=== PATIENT | female | born 1980 | race African-American/Black ===

== ENCOUNTER 2016-12-07 20:31 | Emergency (ER) | payer MEDICAID ==
[~2016-12-07] VITALS: Ht 157.5 cm; Wt 67.0 kg
[2016-12-07 20:33] VITALS: BP 149/77; PULSE 85; RESP 15; TEMP 98.1; O2SAT 98
--- NOTE | 2016-12-07 21:39 | PD ---
HPI Chief Complaint: Wound/Suture/Staple Re-Check Time Seen by Provider: 21:25 Travel History International Travel<30 days: No Contact w/Intl Traveler<30days: No Traveled to known affect area: No History of Present Illness HPI 36-year-old female presents for staple removal. She was seen here in November 17 after a fall in which she sustained a left parietal scalp laceration. This was repaired with 3 tootie. She voices no complaints regarding the injury. PFSH Past Medical History Hx Anticoagulant Therapy: No Arthritis: Yes Asthma: Yes Cardiovascular Problems: No Chemotherapy: No Cerebrovascular Accident: No Diabetes: No Diminished Hearing: No Respiratory: Yes (ASTHMA) Integumentary: Yes (ECCHYMOTIC LT EYE) ?: Not : 3 Para: 1 Miscarriage: 1 : 1 Past Surgical History Section: Yes Hysterectomy: No Other Surgery: Yes (BREAST REDUCTION) Social History Alcohol Use: No Tobacco Use: Yes (3-5 cig daily ) Substance Use: No Allergies-Medications (Allergen,Severity, Reaction): Coded Allergies: No Known Allergies (Verified , 12/07/16) Reported Meds & Prescriptions Reported Meds & Active Scripts Active No Active Prescriptions or Reported Medications Review of Systems Skin: Positive Other ([place], need to be removed) Physical Exam Narrative GENERAL: Well developed well-nourished female in no acute distress SKIN: Warm and dry. Healed left parietal scalp laceration, [address], no dehiscence or drainage or erythema HEAD: Skin as noted above Normocephalic. NEUROLOGICAL: Awake and alert. No obvious cranial nerve deficits. Motor grossly within normal limits. Normal speech. Data Data Last Documented VS Vital Signs Date Time Temp Pulse Resp B/P Pulse Ox O2 Delivery O2 Flow Rate FiO2 12/07/16 20:33 98.1 85 15 149/77 98 Room Air MDM Medical Decision Making Medical Screen Exam Complete: Yes Emergency Medical Condition: Yes Medical Record Reviewed: Yes Differential Diagnosis Staple removal, wound dehiscence, infected wound Narrative Course The tootie were removed without incident. Diagnosis Primary Impression: Removal of staple Med/Other Pt SpecificInfo: No Change to Meds Scripts No Active Prescriptions or Reported Meds Disposition: 01 DISCHARGE HOME Condition: Stable Felipe Botello Dec 07, 2016 21:39
== END 2016-12-07 22:02 | disposition home or self-care (01) ==
LOC: NEPB 20:31
DX: Z48.02 Encounter for removal of sutures (principal)
CPT/HCPCS: 99281

== ENCOUNTER 2017-03-01 07:57 | Emergency (ER) | payer SELFPAY ==
[~2017-03-01] VITALS: Ht 154.9 cm; Wt 64.0 kg
[2017-03-01 08:00] VITALS: BP 107/70; PULSE 67; RESP 19; TEMP 97.4; O2SAT 100
--- NOTE | 2017-03-01 08:13 | PD ---
HPI Chief Complaint: Wound/Suture/Staple Re-Check Time Seen by Provider: 08:12 Travel History International Travel<30 days: No Contact w/Intl Traveler<30days: No Traveled to known affect area: No History of Present Illness HPI 36-year-old female presents to the emergency department requesting abscess packing removal that has been there for 2 days. She thought she had come here but then recalls that she actually had the abscess incised, drained and packed at [facility]. She denies fever, chills, nausea, vomiting. Reports improvement in the area. Has been taking antibiotic as prescribed. She doesn' t remember the name of the antibiotic that she was prescribed. No other medical complaints. No known allergies. No other modifying factors or associated signs and symptoms PFSH Past Medical History Hx Anticoagulant Therapy: No Arthritis: Yes Asthma: Yes Cardiovascular Problems: No Chemotherapy: No Cerebrovascular Accident: No Diabetes: No Diminished Hearing: No Respiratory: Yes (ASTHMA) Integumentary: Yes (ECCHYMOTIC LT EYE) ?: Not LMP: 02/13/17 : 3 Para: 1 Miscarriage: 1 : 1 Past Surgical History Section: Yes Hysterectomy: No Other Surgery: Yes (BREAST REDUCTION) Social History Alcohol Use: No Tobacco Use: Yes (3-5 cig daily ) Substance Use: No Allergies-Medications (Allergen,Severity, Reaction): Coded Allergies: No Known Allergies (Verified , 12/07/16) Reported Meds & Prescriptions Reported Meds & Active Scripts Active No Active Prescriptions or Reported Medications Review of Systems Except as stated in HPI: all other systems reviewed are Neg Physical Exam Narrative GENERAL: Well-nourished, well-developed female patient, in no acute distress; afebrile, nontoxic-appearing SKIN: There is an abscess to the right labia majora with iodoform packing present. Labia majora is mildly edematous and without erythema. HEAD: Atraumatic. Normocephalic. EYES: Pupils equal and round. No scleral icterus. No injection or drainage. ENT: Mucosa pink and moist. Airway patent. NECK: Trachea midline. CARDIOVASCULAR: Regular rate. RESPIRATORY: No accessory muscle use. GASTROINTESTINAL: Flat. MUSCULOSKELETAL: No obvious deformities. No clubbing. No cyanosis. No edema. NEUROLOGICAL: Awake and alert. Oriented 3. No obvious cranial nerve deficits. Motor grossly within normal limits. Normal speech. PSYCHIATRIC: Appropriate mood and affect; insight and judgment normal. Data Data Last Documented VS Vital Signs Date Time Temp Pulse Resp B/P Pulse Ox O2 Delivery O2 Flow Rate FiO2 03/01/17 08:00 97.4 67 19 107/70 100 MDM Medical Decision Making Medical Screen Exam Complete: Yes Emergency Medical Condition: Yes Medical Record Reviewed: Yes Differential Diagnosis Encounter for abscess packing removal, wound recheck, medical clearance Narrative Course 36-year-old female presents for abscess packing removal to her right labia majora. The abscess was incised, drained, and packed at [facility]. She reports improvement in symptoms. Is taking antibiotics as prescribed but cannot recall the name of them. Packing removed and patient tolerated well. Instructed patient to continue antibiotics until they are gone. Instructed patient to follow up with gynecology. Patient verbalizes understanding and agreement with treatment plan. Patient is medically cleared and stable for discharge. Discussed reasons to return to the emergency department. Instructed patient to follow up with primary care provider. Patient agrees with treatment plan. The patients vital signs are stable and the patient is stable for outpatient follow-up and treatment. Patient discharged home, stable and in no acute distress. Diagnosis Primary Impression: Encounter for abscess packing removal Referrals: [facility] Primary Care Physician Patient Instructions: Abscess (ED), Abscess Follow-up (ED), General Instructions Departure Forms: Tests/Procedures, Work Release Enter return to work date: Mar 02, 2017 Additional Instructions: Continue antibiotics as prescribed and complete full course Warm compresses to the affected area Keep area clean and dry Ibuprofen or Tylenol as directed and as needed for pain and inflammation Follow-up with primary care provider Follow-up with house registry rn Return to emergency department immediately with worsening of symptoms Med/Other Pt SpecificInfo: No Change to Meds, No Meds Exist/No RX given Scripts No Active Prescriptions or Reported Meds Disposition: DISCHARGE HOME Condition: Stable Dalia Vance Mar 01, 2017 08:13
== END 2017-03-01 08:31 | disposition home or self-care (01) ==
LOC: NEPK 07:57
DX: N76.4 Abscess of vulva (principal); Z48.01 Encounter for change or removal of surgical wound dressing
CPT/HCPCS: 99282

== ENCOUNTER 2017-06-18 16:49 | Emergency (ER) | payer MEDICAID ==
[~2017-06-18] VITALS: Ht 157.5 cm; Wt 65.0 kg
[2017-06-18 16:53] VITALS: BP 188/105; PULSE 71; RESP 16; TEMP 98.7; O2SAT 99
[2017-06-18] MEDS ORDERED: LIDOCAINE HCL 1% 50 ML VIAL INFIL ONE (18:00)
--- NOTE | 2017-06-18 18:05 | PD ---
HPI Chief Complaint: Laceration/Skin Injury Time Seen by Provider: 17:55 Travel History International Travel<30 days: No Contact w/Intl Traveler<30days: No Traveled to known affect area: No History of Present Illness HPI 36-year-old female presents to the emergency department for evaluation of laceration to her left plantar foot that occurred just prior to arrival. Patient states she stopped and cut her foot on a piece of glass. She states it was a large piece of glass. Patient states her tetanus immunization was 2 years ago. She reports no chronic medical problems and takes no medications. She has no other complaints at this time. PFSH Past Medical History Hx Anticoagulant Therapy: No Arthritis: Yes Asthma: Yes Cardiovascular Problems: No Chemotherapy: No Cerebrovascular Accident: No Diabetes: No Diminished Hearing: No Respiratory: Yes (ASTHMA) Integumentary: Yes (ECCHYMOTIC LT EYE) Tetanus Vaccination: < 5 Years Influenza Vaccination: No ?: Not LMP: 3 days ago : 3 Para: 1 Miscarriage: 1 : 1 Past Surgical History Section: Yes Hysterectomy: No Other Surgery: Yes (BREAST REDUCTION) Social History Alcohol Use: No Tobacco Use: Yes (3-5 cig daily ) Substance Use: No Allergies-Medications (Allergen,Severity, Reaction): Coded Allergies: No Known Allergies (Verified , 06/18/17) Reported Meds & Prescriptions Reported Meds & Active Scripts Active No Active Prescriptions or Reported Medications Review of Systems Except as stated in HPI: all other systems reviewed are Neg Physical Exam Narrative GENERAL: Well-nourished, well-developed female patient, ambulatory. Afebrile. SKIN: Focused skin assessment warm/dry. Patient is a 1 cm laceration of the left plantar foot. I have able to visualize the base of the wound and there is no foreign body. HEAD: Normocephalic. Atraumatic. EYES: No scleral icterus. No injection or drainage. NECK: Supple, trachea midline. No JVD or lymphadenopathy. CARDIOVASCULAR: Regular rate and rhythm without murmurs, gallops, or rubs. RESPIRATORY: Breath sounds equal bilaterally. No accessory muscle use. Lungs sounds are clear to auscultation. GASTROINTESTINAL: Abdomen soft, non-tender, nondistended. MUSCULOSKELETAL: No cyanosis, or edema. BACK: Nontender without obvious deformity. No CVA tenderness. Data Data Last Documented VS Vital Signs Date Time Temp Pulse Resp B/P Pulse Ox O2 Delivery O2 Flow Rate FiO2 06/18/17 16:53 98.7 71 16 188/105 99 Orders Lidocaine 1% Inj (50 Ml) (Xylocaine 1% I (06/18/17 18:00) [facility] Medical Decision Making Medical Screen Exam Complete: Yes Emergency Medical Condition: Yes Medical Record Reviewed: Yes Differential Diagnosis laceration vs. abrasion vs. contusion Narrative Course 36-year-old female presents to the emergency department for evaluation of a laceration to her left plantar foot. The laceration is minor 1 cm laceration of left plantar foot. Patient gives verbal consent for laceration repair. Laceration is repaired with one stitch. She is instructed on proper wound care instructions. Patient verbalizes agreement and understanding. Procedures Procedure Narrative LACERATION LOCATION: left plantar foot LENGTH: 1 cm NUMBER OF STITCHES/HARITHA: 1 simple, interrupted suture REPAIR: The area of the laceration was prepped with Betadine and sterilely draped. The laceration was infiltrated with 1% lidocaine. The wound was copiously irrigated and explored without evidence of foreign body, tendon injury or neurovascular injury. The wound was closed using 4-0 Prolene. This was a single layer repair. A sterile dressing was applied. The patient was advised to keep the dressing clean and dry. Patient tolerated the procedure well. Diagnosis Primary Impression: Laceration of foot, left Qualified Code: S91.312A - Laceration of foot, left, initial encounter Referrals: Primary Care Physician call for appointment Patient Instructions: General Instructions, Laceration (ED) Additional Instructions: Clean twice daily with antibacterial soap and water and apply antibiotic ointment. Keep clean and dry. No swimming or hot tubs. Suture removal in 10 days. You may follow up with your primary care physician or return to the emergency department for this. Med/Other Pt SpecificInfo: No Change to Meds Scripts No Active Prescriptions or Reported Meds Disposition: 01 DISCHARGE HOME Condition: Stable Irina Chapa DORENE Jun 18, 2017 18:05
== END 2017-06-18 18:41 | disposition home or self-care (01) ==
LOC: NEPD 16:49
DX: S91.312A Laceration without foreign body, left foot, initial encounter (principal); W25.XXXA Contact with sharp glass, initial encounter
CPT/HCPCS: 12001

== ENCOUNTER 2018-04-01 21:55 | Emergency (ER) | payer MEDICAID ==
[2018-04-01 22:02] VITALS: BP 108/67; PULSE 82; RESP 18; TEMP 98; O2SAT 100
--- NOTE | 2018-04-01 22:20 | PD ---
HPI Chief Complaint: Injury Time Seen by Provider: 22:06 Travel History International Travel<30 days: No Contact w/Intl Traveler<30days: No Traveled to known affect area: No History of Present Illness HPI Patient is a 37 year female presenting to emerge from for evaluation of left foot pain. Patient states a large bookshelf fell onto her left foot across the base of her toes yesterday evening. Since that time she has had pain which is worse with ambulation. She reports her pain is a 7 out of 10, she states is aching and throbbing. She also reports that something on the bookshelf hit her in the head. She denies any current headache, dizziness, nausea, vomiting. Patient is on a blood thinners. She has not taken any medications to alleviate her current symptoms. Patient is able to bear weight. Symptom onset was sudden , symptoms are moderate in nature. There are no alleviating factors. PFSH Past Medical History Hx Anticoagulant Therapy: No Arthritis: Yes Asthma: Yes Respiratory: Yes (ASTHMA) Integumentary: Yes (ECCHYMOTIC LT EYE) Immunizations Current: Yes ?: Not : 3 Para: 1 Miscarriage: 1 : 1 Past Surgical History Section: Yes Hysterectomy: No Other Surgery: Yes (BREAST REDUCTION) Social History Alcohol Use: Yes Tobacco Use: No Substance Use: No Allergies-Medications (Allergen,Severity, Reaction): Coded Allergies: No Known Allergies (Verified Adverse Reaction, Unknown, 04/01/18) Reported Meds & Prescriptions Reported Meds & Active Scripts Active Ibuprofen 800 Mg Tab 800 Mg PO Q6HR PRN Review of Systems Except as stated in HPI: all other systems reviewed are Neg Musculoskeletal: Positive: Myalgias, Arthralgias, Pain Skin: Positive Change in Pigmentation Physical Exam Narrative GENERAL: Well-developed, well-nourished, alert female. Presenting in no acute distress. SKIN: Warm and dry. Mild erythema and edema to first MTP. HEAD: Normocephalic. EYES: No scleral icterus. No injection or drainage. NECK: Supple, trachea midline. No JVD or lymphadenopathy. CARDIOVASCULAR: Regular rate and rhythm without murmurs, gallops, or rubs. RESPIRATORY: Breath sounds equal bilaterally. No accessory muscle use. GASTROINTESTINAL: Abdomen soft, non-tender, nondistended. MUSCULOSKELETAL: No cyanosis, full range of motion with flexion extension of toes and ankle on the left side. 2+ dorsalis pedal pulse. BACK: Nontender without obvious deformity. No CVA tenderness. Data Data Last Documented VS Vital Signs Date Time Temp Pulse Resp B/P (MAP) Pulse Ox O2 Delivery O2 Flow Rate FiO2 04/01/18 22:02 98.0 82 18 108/67 (81) 100 Orders Orders Foot, Complete ([id number]) (04/01/18 ) Ed Discharge Order (04/01/18 22:48) MDM Medical Decision Making Medical Screen Exam Complete: Yes Emergency Medical Condition: Yes Interpretation(s) Vital Signs Date Time Temp Pulse Resp B/P (MAP) Pulse Ox O2 Delivery O2 Flow Rate FiO2 04/01/18 22:02 98.0 82 18 108/67 (81) 100 Differential Diagnosis Contusion versus fracture versus sprain versus strain versus other Narrative Course Patient is well-appearing 37-year-old female presenting for evaluation of left foot pain after a bookshelf fell onto her foot last night. Patient's vital signs are stable. X-ray ordered and pending. X-ray of the left foot is unremarkable. Patient is encouraged to rest, ice, elevate extremity. Take ibuprofen as needed and as directed for pain. Patient was reassured that there were no acute findings and symptoms should resolve on their own with conservative management. She is encouraged to follow-up with her primary doctor return to emergency department for any new or worsening symptoms. Patient verbalized understanding of instructions. Patient stable for discharge. Diagnosis Primary Impression: Contusion of foot Qualified Codes: S90.32XA - Contusion of left foot, initial encounter Referrals: [facility] 1 week Primary Care Physician Patient Instructions: Foot Contusion (ED), General Instructions Additional Instructions: Rest, ice, elevate extremity Take ibuprofen as needed and as directed for pain Follow-up with your primary doctor Return to emergency department for any new or worsening symptoms Med/Other Pt SpecificInfo: Prescription(s) given Scripts Ibuprofen (Ibuprofen) 800 Mg Tab 800 MG PO Q6HR Y for PAIN, #40 TAB 0 Refills Prov: Keyana Rodriguez 04/01/18 Disposition: 01 DISCHARGE HOME Condition: Stable Keyana Rodriguez April 01, 2018 22:20
--- NOTE | 2018-04-01 22:34 | RADRPT ---
EXAM DATE/TIME: 04/01/2018 22:17 [facility] COMPARISON: No previous studies available for comparison. INDICATIONS : Left foot pain from crushing trauma. MEDICAL HISTORY : None. SURGICAL HISTORY : None. ENCOUNTER: Initial ACUITY: 2 days PAIN SCORE: 8/10 LOCATION: Left foot FINDINGS: Three view examination of the left foot demonstrates no soft tissue swelling, dislocation, or fractur e. The tarsal bones appear intact. The interphalangeal and metatarsophalangeal joints are intact. The calcaneus is intact. Bony mineralization is normal. CONCLUSION: Unremarkable examination of the left foot. Eben Rudolph MD on April 01, 2018 at 22:33 Board Certified Radiologist. This report was verified electronically.
[2018-04-01] MEDS ORDERED: IBUP1TAB7 PO (22:48)
== END 2018-04-01 23:28 | disposition home or self-care (01) ==
LOC: NEPD 21:55
DX: S90.32XA Contusion of left foot, initial encounter (principal); W20.8XXA Other cause of strike by thrown, projected or falling object, initial encounter
CPT/HCPCS: 73630; 99283

== ENCOUNTER 2018-05-15 19:23 | Emergency (ER) | payer MEDICAID ==
[~2018-05-15] VITALS: Ht 157.5 cm; Wt 63.6 kg
[~2018-05-15 19:23] MED LIST: IBUP1TAB7 PO
[2018-05-15 19:26] VITALS: BP 135/82; PULSE 72; RESP 15; TEMP 98.2; O2SAT 99
--- NOTE | 2018-05-15 19:41 | PD ---
HPI Chief Complaint: head injury Time Seen by Provider: 19:32 Travel History International Travel<30 days: No Contact w/Intl Traveler<30days: No Traveled to known affect area: No History of Present Illness HPI 37-year-old female presents to the emergency department from home by EMS transport after sustaining head injury with loss of consciousness. According to the paramedics and the patient patient was in her room sitting on a bed looking through her cell phone with a ceiling fan overhead. According the patient ceiling fan has been wobbling for a while and was making is normal wobbling noises and then she awakened on the floor. According to software reliability engineer report family member at home heard a large crashing sound went into the room found the patient on the floor with the ceiling fan on the floor next to her with some ceiling debris next to the patient's head. Patient was reportedly unconscious but was easily awakened by the sister. There was reportedly no seizure activity identified. No obvious soft tissue abnormality to the forehead or scalp and no obvious laceration or abrasion. Patient awakened without confusion other than unaware of what had happened but new apparently who she was where she was and recognized her family member. EMS arrived and patient was awake upon their arrival. Estimated time of loss of consciousness less than 1 minute. There was no reported seizure activity no tongue trauma and no incontinence. Patient here complains of 8/10 intensity headache light sensitivity and 5/10 intensity neck pain with bilateral shoulder soreness. Patient denies any back pain chest pain rib pain shortness of breath abdominal pain flank pain pelvic pain arm hand leg or foot pain. Patient also denies any upper extremity or lower extremity numbness tingling or weakness. Patient was placed in cervical collar and transported to the emergency department for further evaluation. Patient states last menstrual period was 5 days ago and normal for her and denies . Patient has history of asthma and uses as needed albuterol inhaler. Patient does admit to tobacco use denies alcohol use or substance use. Patient is otherwise unable to identify exacerbating or alleviating factors. [facility] Past Medical History Narrative Medical Asthma arthritis breast reduction tobacco use; nursing notes reviewed Hx Anticoagulant Therapy: No Arthritis: Yes Asthma: Yes Respiratory: Yes (ASTHMA) Integumentary: Yes (ECCHYMOTIC LT EYE) Immunizations Current: Yes : 3 Para: 1 Miscarriage: 1 : 1 Past Surgical History Section: Yes Hysterectomy: No Other Surgery: Yes (BREAST REDUCTION) Social History Alcohol Use: Yes Tobacco Use: No Substance Use: No Allergies-Medications (Allergen,Severity, Reaction): Coded Allergies: No Known Allergies (Verified Adverse Reaction, Unknown, 05/15/18) Reported Meds & Prescriptions Reported Meds & Active Scripts Active Ibuprofen 800 Mg Tab 800 Mg PO Q6HR PRN Review of Systems Except as stated in HPI: all other systems reviewed are Neg General / Constitutional: No: Fever, Chills Eyes: Positive: Photophobia, No: Diploplia, Blurred Vision HENT: Positive: Headaches, Neck Pain Cardiovascular: No: Chest Pain or Discomfort Respiratory: No: Shortness of Breath Gastrointestinal: No: Nausea, Vomiting, Abdominal Pain Genitourinary: No: Flank Pain Musculoskeletal: No: Myalgias, Arthralgias, Weakness, Cramping Skin: No Rash Neurologic: Positive: Syncope, Headache, No: Weakness, Dizziness, Focal Abnormalities, Coordination Problem, Change in Mentation, Slurred Speech, Paresthesia, Sensory Disturbance Psychiatric: No: Anxiety Hematologic/Lymphatic: No: Easy Bruising Physical Exam Narrative GENERAL: Well-developed well-nourished female in no acute distress no respiratory distress holding a towel over her eyes; GCS 15 SKIN: Warm and dry. HEAD: Atraumatic. Normocephalic. No scalp soft tissue swelling tenderness abrasion laceration or palpable bony abnormality. EYES: Pupils equal and round reactive to light. No scleral icterus. No injection or drainage. ENT: No nasal bleeding or discharge. Mucous membranes pink and moist. NECK: Trachea midline. No JVD. Cervical collar in place nontender to direct midline palpation along the cervical spine no bony step-off. CARDIOVASCULAR: Regular rate and rhythm. Chest wall: Nontender to palpation. RESPIRATORY: No accessory muscle use. Clear to auscultation. Breath sounds equal bilaterally. GASTROINTESTINAL: Abdomen soft, non-tender, nondistended. Hepatic and splenic margins not palpable. MUSCULOSKELETAL: Extremities without clubbing, cyanosis, or edema. No obvious deformities. NEUROLOGICAL: Awake and alert. No obvious cranial nerve deficits. Motor grossly within normal limits. Five out of 5 muscle strength in the arms and legs. Sensory exam intact to light touch. Normal speech. PSYCHIATRIC: Appropriate mood and affect; insight and judgment normal. Data Data Last Documented VS Vital Signs Date Time Temp Pulse Resp B/P (MAP) Pulse Ox O2 Delivery O2 Flow Rate FiO2 05/15/18 19:26 98.2 72 15 135/82 (99) 99 Orders Orders ^ Saline Lock (05/15/18 19:32) Ct Brain W/O Iv Contrast(Rout) (05/15/18 ) Ct Cerv Spine W/O Contrast (05/15/18 ) Sodium Chlor 0.9% 1000 Ml Inj (Ns 1000 M (05/15/18 19:45) Morphine Inj (Morphine Inj) (05/15/18 19:45) Morphine Inj (Morphine Inj) (05/15/18 20:00) MDM Medical Decision Making Medical Screen Exam Complete: Yes Emergency Medical Condition: Yes Medical Record Reviewed: Yes Differential Diagnosis Minor closed head injury, concussion, skull fracture, intracranial bleed, cervical spine sprain strain fracture cord compression HNP Narrative Course Patient placed on monitor with continuous pulse oximetry IV access obtain normal saline maintenance at 100 cc/h administered morphine sulfate [address] brain noncontrast and CT cervical spine noncontrast imaging studies ordered Review of medical records indicates patient had a C-spine CT 2015 that showed mild disc protrusion without cord involvement at levels C4-5 At 8:21 PM informed by patient's nurse that she has refused IV morphine and; have discussed in detail with patient the risk and benefit of undergoing imaging study versus refusing imaging study including paralysis, and . Patient states that she feels fine she does not need any pain medication did not have any IV fluids or any medication for pain relief prior to arrival to the emergency department or since arriving to the emergency department she does see she is where she is she feels well and she is refusing a CT of the brain and CT of the cervical spine. Patient is removed her cervical collar on her own. Have discussed in detail the benefit of the CT of the brain and cervical spine. Patient states that she understands that she could have something as serious as an intracranial bleed or cervical spine fracture and states that she does not want to have any imaging study is refusing to stay and is advised. This point time patient is alert oriented person place time and events has had no medications to interfere with her decision-making and will sign out AGAINST MEDICAL ADVICE. AMA: The risks of leaving against medical advice without further evaluation treatment were discussed with the patient. These risks include cardiac dysfunction, cardiac dysrhythmia, possible heart attack, possible stroke or . The patient indicated understanding of these risks and appeared to have the capacity to make this decision. Diagnosis Primary Impression: Left against medical advice Disposition: 07 AGAINST MEDICAL ADVICE Condition: Stable Ama Duran MD May 15, 2018 19:41
[2018-05-15] MEDS ORDERED: SODIUM CHLOR 0.9% 1000 ML INJ 1,000 ML IV SCH (19:45)
[2018-05-15] MEDS ORDERED: MORPHINE SULFATE 2 MG/ML SYRINGE IV PUSH ONE (19:45)
[2018-05-15] MEDS ORDERED: MORPHINE SULFATE 4 MG/ML INJ IV PUSH ONE (20:00)
== END 2018-05-15 20:27 | disposition left against medical advice (07) ==
LOC: NEPC 19:23
DX: S06.9X1A Unspecified intracranial injury with loss of consciousness of 30 minutes or less, initial encounter (principal); J45.909 Unspecified asthma, uncomplicated; M19.90 Unspecified osteoarthritis, unspecified site; M54.2 Cervicalgia; W20.8XXA Other cause of strike by thrown, projected or falling object, initial encounter
CPT/HCPCS: 99284; J7030